=== PATIENT | male | born 1990 | race Caucasian/White ===

== ENCOUNTER 2022-05-13 19:43 | Emergency (ER) | payer BC, SELFPAY ==
[2022-05-13 19:58] VITALS: BP 143/85; PULSE 91; RESP 16; TEMP 36.9; O2SAT 97; BMI 25.8
--- NOTE | 2022-05-13 21:05 | CTR_ITS ---
PROCEDURE INFORMATION: Exam: CT Lumbar Spine Without Contrast Exam date and time: 05/13/2022 9:27 PM Age: 32 years old Clinical indication: Patient HX: Low back pain with left leg pain and weakness. Unable to elevate left leg or bear weight on it; Additional info: Lumbar radiculopathy S/P fall TECHNIQUE: Imaging protocol: Computed tomography of the lumbar spine without contrast. Radiation optimization: All CT scans at this facility use at least one of these dose optimization techniques: automated exposure control; mA and/or kV adjustment per patient size (includes targeted exams where dose is matched to clinical indication); or iterative reconstruction. Other protocol: This patient has received 0 known CTs and 0 known cardiac nuclear medicine studies in the 12 months prior to the current study. COMPARISON: No relevant prior studies available. RADIATION DOSE METRICS: Total DLP (mGy-cm): 333.3 FINDINGS: Bones/joints: Multilevel small marginal osteophyte formations. There are degenerative Schmorl's nodes in several lower thoracic and lumbar vertebra. Multilevel mild facet arthropathy. Multilevel mild disc space narrowing. L1-L2: No significant disc protrusion. No severe spinal canal stenosis. No significant neural foraminal narrowing. L2-L3: No significant disc protrusion. No severe spinal canal stenosis. No significant neural foraminal narrowing. L3-L4: No significant disc protrusion. No severe spinal canal stenosis. No significant neural foraminal narrowing. L4-L5: There is a broad-based disc bulge without significant canal or neural foramina stenosis. L5-S1: Minimal disc bulge. No significant canal or neural foramina stenosis. Soft tissues: Unremarkable. CT/CT lumbar spine wo con* [id number] IMPRESSION: There are degenerative changes as described above. No evidence for acute fracture.
[2022-05-13] MEDS: oxyCODONE-APAP 5-325 mg Tablet 2 TAB PO (21:17)
--- NOTE | 2022-05-13 21:48 | W.ED.BACK ---
HPI - Back Pain/Injury General: Chief Complaint: Back Pain/Injury Stated Complaint: back pain, can't lift leg, fell last week Time Seen by Provider: 05/13/22 20:40 History of Present Illness: 32-year-old male complaining of radicular back pain. Radiation is down the left greater than right leg. He notes that he has trouble lifting his left leg for the past several hours. He had injured his back after a fall last week, but was helping a friend work on a truck earlier today, and felt a worsening pull in his lower back. He is having trouble walking now, and having trouble moving. He denies any numbness or paresthesia, including no numbness to groin or genitalia. He is having trouble lifting the left greater than right leg. He did not lose control of his bowel or bladder. He denies any fever. MD elicited complaint: back pain and back injury Pertinent past history: recent trauma Onset (ago): day(s) Timing: constant Severity: moderate Location: lumbar spine Radiation: abdomen and left leg below the knee Exacerbating factors: movement Relieving factors: none Associated symptoms: Reports nausea; Deny abdominal pain, fecal incontinence, fever(s), syncope or tingling/numbness/burning Review of Systems Const: Denies: fever(s) Card: Denies: chest pain or syncope Resp: Denies: dyspnea, productive cough or non-productive cough GI: Reports: nausea; Denies: abdominal pain or fecal incontinence Physical Exam Const: COMMON NORMALS: no acute distress GENERAL APPEARANCE: cooperative; not ill appearing and not frail appearing HENMT: COMMON NORMALS: normocephalic, atraumatic and Normal external nose present HEAD & SCALP: normocephalic and atraumatic FACE & SINUS: normal facial exam and face symmetric NOSE: Normal external nose present Eye: COMMON NORMALS: Equal, round and reactive pupils present and EOMs intact bilaterally PUPIL: Yes Equal, round and reactive pupils present Neck/C-Spine: GENERAL: Yes trachea midline Chest: CHEST: Yes Symmetrical chest wall rise Resp: COMMON NORMALS: normal respiratory effort, No retractions, No use of accessory muscles and clear to auscultation bilaterally AUSCULTATION: clear to auscultation bilaterally Cardio: COMMON NORMALS: regular rate and regular rhythm RATE: regular rate RHYTHM: regular rhythm GI: COMMON NORMALS: Normal to inspection, nondistended, normoactive bowel sounds present Back/Pelvis: OTHER: Examination reveals tenderness over the lumbar spine, particularly at L4-5 and L5-S1. There is mild midline tenderness. Pain increases with straight leg raise testing. There is no deformity. Sensation is intact distally to both lower extremities. Extremity: COMMON NORMALS: no pedal edema Neuro: NOAH COMA SCALE: document GCS findings Noah coma scale eye opening: Spontaneous Noah coma scale verbal response: Orientated [place] coma scale motor response: Obey commands [place] coma scale total score: 15 SENSORY EXAM: Yes extremities (intact) Psych: COMMON NORMALS: speech normal SPEECH: Yes normal speech Skin: COMMON NORMALS: no rashes or lesions noted GENERAL SKIN EXAM: no rashes or lesions noted Course Vital Signs: Vital signs: Vital Signs Temperature 98.4 F 05/13/22 19:58 Pulse Rate 82 05/13/22 22:52 Respiratory Rate 18 05/13/22 22:52 Blood Pressure 131/76 05/13/22 22:52 Pulse Oximetry 96 05/13/22 22:52 Oxygen Delivery Me thod 05/13/22 19:58 MDM - Back Pain/Injury Medical Decision Making CT scan shows a broad-based disc bulge at L4-L5 consistent with his symptoms. However, there is no foraminal or central canal stenosis that is significant. If this is acute, swelling could be causing symptoms. He will be placed on a steroid taper. First dose here. Labs Radiology Impressions Lumbar Spine CT 05/13/22 21:05 IMPRESSION: There are degenerative changes as described above. No evidence for acute fracture. Discharge Plan Discharge Patient Disposition: Home Clinical Impression: Lumbar radiculopathy, Lumbar disc herniation Condition: Stable Prescriptions: New hydrocodone-acetaminophen 5-325 mg tablet 1 tab PO Q8H PRN (Reason: pain) Qty: 7 0RF ketorolac 10 mg tablet 10 mg PO TID PRN (Reason: pain) Qty: 10 0RF Medrol (Sekou) 4 mg tablets,dose pack See Rx Instructions .ROUTE .COMPLEX Qty: 21 0RF Rx Instructions: orally per package directions Discharge Orders: Discharge ED (Routine); Ordered 05/13/22 Ordered By: Trent Barillas Patient Instructions: Lumbar Disc Herniation (ED), Pain Management Activity Restrictions/Additional Instructions: Return to the ER for inability to control your bowel or bladder function, numbness to your genitalia, worsening pain despite treatment, other concerning symptoms. After a couple of days of medication, your pain and function should begin to improve. See your doctor for follow-up early this week. Coding Level of Care Code ED [employer] Exam Comprehensive
[2022-05-13] MEDS: predniSONE 20 mg Tablet 60 MG PO (22:51)
[2022-05-13 22:52] VITALS: BP 131/76; PULSE 82; RESP 18; O2SAT 96
== END 2022-05-13 22:52 | disposition home or self-care (01) ==
PROVIDERS: Emergency Provider Emergency Medicine
DX: M51.16 Intervertebral disc disorders with radiculopathy, lumbar region (principal)
CPT/HCPCS: 72131; 99284; J7512

== ENCOUNTER → 2023-11-29 14:15 | Outpatient (BNVA) | payer BC, SELFPAY | PROVIDERS: PCP Family Medicine; Visit Provider Orthopaedic Surgery | DX: M54.50 Low back pain, unspecified (principal) | CPT/HCPCS: 72110 ==

== ENCOUNTER 2024-03-10 15:02 | Outpatient (CLI) | payer BC, SELFPAY ==
--- NOTE | 2024-03-10 15:16 | MR_ITS ---
WS: [id number] MRI LUMBAR SPINE NONCONTRAST HISTORY: M54.9 - Dorsalgia, unspecified COMPARISON: CT lumbar spine 05/13/2022, radiograph 11/29/2023 TECHNIQUE: Sagittal and axial multisequence imaging is submitted. Small central disc protrusion C5-6 with slight contact on the ventral cervical cord. Normal lumbar alignment with no compression fractures or marrow edema. Irregularity along the superio r endplate of L5 is probably a small Schmorl's node defect. Disc spaces and vertebral body heights are well-preserved. Conus terminates normally at L1-2 disc level. L1-L2: Normal. L2-L3: Normal. L3-L4: Mild annular disc bulging. Very shallow broad-based disc protrusion LEFT foramen resulting in mild LEFT foraminal stenosis. L4-L5: Mild diffuse annular disc bulging with a shallow central disc protrusion. There is mild disc c ontact on the traversing L5 nerve roots. Mild osteophytic ridging and facet disease. Mild central, bi lateral subarticular recess and foraminal stenosis. L5-S1: Mild annular disc bulge with a central to LEFT foraminal broad-based disc protrusion. Disc pro trusion contacts the LEFT S1 nerve root and the exiting LEFT L5 nerve root. Mild central, LEFT subart icular recess and moderate LEFT foraminal stenosis. Mild RIGHT foraminal stenosis. Paravertebral soft tissues are negative. MR/MR lumbar spine wo con* [id number] IMPRESSION: 1. No acute lumbar spine fracture. Small amount of edema in the posterior L5 v ertebral body is most consistent with a small Schmorl's node defect. 2. L4-5: Diffuse annular disc bulging with a shallow central disc protrusion. There is disc contact on the traversing L5 nerve roots. Mild central, bilateral subarticular recess and foraminal stenosis. 3. L5-S1: Broad-based central to LEFT foraminal disc protrusion. Disc protrusi on is contacting the LEFT S1 nerve root and the exiting LEFT L5 nerve root. Mil d central, LEFT subarticular recess and moderate LEFT foraminal stenosis. Mild RIGHT foraminal stenosis. 4. L3-4: Very minimal LEFT foraminal stenosis with a shallow broad-based disc protrusion in the LEFT foramen.
== END 2024-03-10 15:03 | disposition home or self-care (01) ==
LOC: RAD 15:02
PROVIDERS: PCP Family Medicine; Visit Provider Orthopaedic Surgery
DX: M51.26 Other intervertebral disc displacement, lumbar region (principal); M99.63 Osseous and subluxation stenosis of intervertebral foramina of lumbar region
CPT/HCPCS: 72148

== ENCOUNTER → 2024-06-19 16:46 | Outpatient (BNVA) | payer BC, SELFPAY | PROVIDERS: PCP Family Medicine; Visit Provider Orthopaedic Surgery | DX: Z01.818 Encounter for other preprocedural examination (principal) | CPT/HCPCS: 36415; 80053; 81001; 85025 ==

== ENCOUNTER 2024-07-18 06:18 | Day surgery (SDC) | payer BC, SELFPAY ==
[2024-07-18] VITALS (12 sets, daily range): BP systolic 115–151; BP diastolic 68–100; PULSE 68–85; RESP 16–18; TEMP 36.2–36.5; O2SAT 97–100; BMI 25.5
[2024-07-18] MEDS: sodium chloride 0.9% 1,000 ML 30 ML IV (07:00)
--- NOTE | 2024-07-18 07:35 | P.ANESASSM_ITS ---
Pre-Anesthetic Assessment Height/Weight: Height 1.7 m Weight 73.936 kg Temp Pulse Resp BP Pulse Ox O2 Del Method 97.6 F 68 18 115/75 98 Room Air 07/18/24 06:40 07/18/24 06:40 07/18/24 06:40 07/18/24 06:40 07/18/24 06:40 07/18/24 06:40 Preop Diagnosis: Lumbar stenosis with neurogenic claudication Operation Date: 07/18/24 08:05 Proposed Procedures p Lumbar Spine Decompression(Not Applicable) - Micheal Tapia DO Last intake: Intake Last Liquid Date 07/17/24 Last Liquid Time 22:00 Last Solid Date 07/17/24 Last Solid Time 19:00 Social Alcohol and No tobacco Exam alert, oriented x 3 and clear to auscultation bilaterally (Normal Cardiac exam ) Airway Submandibular: within normal limits Cervical ROM: within normal limits Mallampati: Class II Comments: Comments: Profound dental and periodontal disease Musc/skel Lower Back Pain Anesthetic Plan ASA status: 2 Anesthesia: General Medications/Allergies Home Medications ?Medication ?Instructions ?Recorded ?Confirmed ?Last Taken ?Type gabapentin 300 mg capsule 300 mg PO TID PRN nerve pain #90 04/23/24 07/17/24 07/13/24 Rx caps Allergies Allergy/AdvReac Type Severity Reaction Status Date / Time No Known Allergies Allergy Verified 07/11/24 10:57 [facility] Anesthesia Social History Smoking and tobacco/nicotine status: former use of tobacco/nicotine Data Anesthesia Cardiac Studies: No Data to Display
--- NOTE | 2024-07-18 07:45 | W.PM.OPSUD ---
Surgery/Procedure H&P Update DATE OF PROCEDURE: July 18, 2024 DATE H&P PERFORMED: 06/19/24 H&P UPDATE INFORMATION: I have reviewed H&P completed within last 30 days, I have examined patient prior to procedure and No changes to prior documentation PREOP DIAGNOSIS: Lumbar stenosis with neurogenic claudication PLANNED PROCEDURE: Operation Date: 07/18/24 08:05 Proposed Procedures p Lumbar Spine Decompression(Not Applicable) - Micheal Tapia DO
[2024-07-18] MEDS: ceFAZolin 2,000 mg SDV 2000 MG IVP (07:52)
[2024-07-18] MEDS: lidocaine-epi 1% 20 mL INJ INJECTION (08:31)
--- NOTE | 2024-07-18 09:53 | P.OP_ITS ---
Operative Report Date of procedure: July 18, 2024 Pre-op diagnosis: Lumbar stenosis with neurogenic claudication Post-op diagnosis: same Procedure done: 1. L4-5 laminectomy and partial facetectomy 2. L5-S1 laminectomy with partial facetectomy Surgeon: Micheal Tapia DO Estimated blood loss (mL): 20 Procedure: 1. L4-5 laminectomy and partial facetectomy 2. L5-S1 laminectomy with partial facetectomy Patient is brought to the operative suite. After undergoing anesthesia they are placed in the prone position. All areas of impingement are well padded. Patient is then prepped and draped in the normal sterile fashion. A skin incision is made over the L4/5 level. This is confirmed under c-arm guidance. A series of dilators are passed and the tubular retractor is docked on the L4 lamina. A bovie is used to clear the soft tissue off the lamina and the L 4/5 facet joint. A high speed elisa is then used to perform the laminectomy and take down the medial aspect of the L 4/5 facet joint. A kerrison rongeure was then used to take down the remaining lamina and smooth the edge of the laminectomy up to the point where the ligamentum flavum attaches. Attention was then brought to the medial aspect of the facet joint. The remaining medial aspect of the superior and inferior aspect of the facet joint were taken down with the kerrison from the pedicle of L4 to L 5. The facet joint had significant hypertrophy. Attention was then brought to the Ligamentum Flavum. The ligament was taken down from the lamina of L4 to L5 and out medially to the remaining facet joint. The ligament was thick. The dura was then exposed. The dura was in good repair. The L4 nerve was then traced with a curette out the L4/5 foramen and found to be adequately decompressed. The L5 nerve was traced with a curette around the L5 pedicle. The lateral recess was opened with a kerrison helping to further decompress the L5 nerve. Wound is then irrigated copiously with saline and surgiflo is used to stop any bleeding. The tubular retractor is removed A skin incision is made over the L5/S1 level. This is confirmed under c-arm guidance. A series of dilators are passed and the tubular retractor is docked on the L5 lamina. A bovie is used to clear the soft tissue off the lamina and the L 5/S1 facet joint. A high speed elisa is then used to perform the laminectomy and take down the medial aspect of the L 5/S1 facet joint. A kerrison rongeure was then used to take down the remaining lamina and smooth the edge of the laminectomy up to the point where the ligamentum flavum attaches. Attention was then brought to the medial aspect of the facet joint. The remaining medial aspect of the superior and inferior aspect of the facet joint were taken down with the kerrison from the pedicle of L5 to S1. The facet joint had significant hypertrophy. Attention was then brought to the Ligamentum Flavum. The ligament was taken down from the lamina of L5 to S1 and out medially to the remaining facet joint. The ligament was thick. The dura was then exposed. The dura was in good repai r. The L5 nerve was then traced with a curette out the L5/S1 foramen and found to be adequately decompressed. The S1 nerve was traced with a curette around the S1 pedicle. The lateral recess was opened with a kerrison helping to further decompress the S1 nerve. Wound is then irrigated copiously with saline and surgiflo is used to stop any bleeding. The tubular retractor is removed and the wound is closed with vicryl and monocryl suture. Glue is then used to protect the wound. A sterile dressing is then placed. Patient was then placed in the supine position and transferred to the PACU in stable condition.
[2024-07-18] MEDS: fentaNYL 50 mcg/mL INJ 2mL IVP (10:31)
--- NOTE | 2024-07-18 11:37 | ANE.PACU2 ---
Inpatient post-anesthesia follow up: Vital signs: Temperature 97.7 F Pulse Rate 73 Respiratory Rate 17 Blood Pressure 123/77 Pulse Oximetry 98 Oxygen Delivery Me thod Room Air Oxygen Flow Rate Fraction of Inspir ed Oxygen Hydration adequate: Yes Nausea and vomiting: No Pain level: 3 Mental status: Baseline
--- NOTE | 2024-07-18 13:49 | XR_ITS ---
WS: [id number] Exam: XR lumbar spine 1V [id number] Date/Time of Exam: 07/18/2024 1:49 PM Reason For Exam: or pic, decompression Single PA C arm image of the lumbar spine is submitted. The image was obtained for preoperative localization purposes.
== END 2024-07-18 11:10 | disposition home or self-care (01) ==
PROVIDERS: PCP Family Medicine; Visit Provider Orthopaedic Surgery
PROC: (CPT 63005; principal; 2024-07-18 08:05)
DX: M48.062 Spinal stenosis, lumbar region with neurogenic claudication (principal); M54.16 Radiculopathy, lumbar region; K05.6 Periodontal disease, unspecified; Z87.891 Personal history of nicotine dependence; Z79.899 Other long term (current) drug therapy
CPT/HCPCS: 63047; 63048; 72020; 76000; J0690; J1100; J2250; J2405; J2704; J3010; J3490; J7030; J9999